=== PATIENT | female | born 1975 | race Caucasian/White ===

== ENCOUNTER → 2023-01-12 15:28 | Outpatient (CLI) | payer OTHER, SELFPAY ==
--- NOTE | ~2023-01-12 | MM_ITS ---
EXAMINATION: MM screening [facility] BI [facility] [place] HISTORY: Screening mammogram TECHNIQUE: Craniocaudal and mediolateral oblique 3-D tomosynthesis images were obtained and synthetic 2-D images were generated. CAD analysis was submitted and interpreted. COMPARISON: 10/22/2017, 10/11/2017, 09/28/2016 BREAST PARENCHYMAL COMPOSITION: There are scattered areas of fibroglandular density. FINDINGS: No suspicious mass, calcification, or architectural distortion are identified in either dalia ast to suggest malignancy. There has been no suspicious interval change. IMPRESSION: 1. No mammographic evidence of malignancy. 2. Recommend routine screening mammography in one year. BI-RADS Category 1: Negative Reviewed, dictated and finalized at location A.
== END ==
PROVIDERS: PCP Family Medicine; Visit Provider Obstetrics & Gynecology
DX: Z12.31 Encounter for screening mammogram for malignant neoplasm of breast (principal)
CPT/HCPCS: 77063; 77067

== ENCOUNTER 2023-02-16 13:59 | Outpatient (RCR) | payer OTHER, SELFPAY ==
--- NOTE | 2023-02-16 15:09 | PTOPEVAL1 ---
Assessment and note entered by Arelis Sweet, PT Evaluation Information Assessment Status Evaluation Diagnosis BPPV Subjective Information had about 3 episodes of vertigo do the self maneuver and clears, but for the past 2 years, continues to gives me troubles with moving head to the R, when lie down in bed, stand and tip head forward to dry hair HX: ear infections, sinus issues, deviated septum taking elyse for allergies, using nasal spray/ does not take anything for dizziness at rest and sitting now: head feels fine; Reported Pain Level Pain Score 0: Self Report Assessment PT Clinical Summary Carlene has the diagnosis of BPPV. Her history also includes chronic sinusitis, deviated septum, nasal congestion. With the evaluation: she reports increased s/s with lying down in bed/ getting up out of bed, standing and leaning forward to dry her hair, standing and turning her head to the R side. She has had episodes of dizziness in the past, but they did not last very long, this time has been off/on for the past 2 years. With the testing: [place] was negative to R and L; Horizontal test to L was negative/ to R was positive. Maneuver to clear her R Horizontal was performed. Provided education to pt. Plan: she will call if any questions or if more s/s she will call for an appointment in the next 5 weeks. Plan of Care Interventions Neuro Re-education,Patient/Caregiver Educati, Therapeutic Exercise PT Services Indicated Yes Treatment Frequency and 0-2x/wk for 5 weeks--she is to call for Duration appointment if vestibular symptoms increase These treatments will address the objective and functional deficits as defined above. The patient will be advanced safely and appropriately in order for the patient to progress towards his/her prior level of function. Additional exercises will be introduced and as well as a comprehensive home exercise program upon discharge, if needed, ?to ensure carryover of functional gains achieved in the clinic. This treatment plan has been reviewed and agreement upon by the patient.
== END 2023-05-17 10:25 | disposition home or self-care (01) ==
LOC: ANHPT 13:59
PROVIDERS: PCP Family Medicine; Visit Provider Otolaryngology
DX: H81.11 Benign paroxysmal vertigo, right ear (principal)
CPT/HCPCS: 95992; 97161

== ENCOUNTER 2024-02-29 09:29 | Outpatient (CLI) | payer OTHER, SELFPAY ==
--- NOTE | ~2024-02-29 | MM_ITS ---
EXAMINATION: MM screening [facility] [place] HISTORY: Screening mammogram TECHNIQUE: Craniocaudal and mediolateral oblique 3-D tomosynthesis images were obtained and synthetic 2-D images were generated. CAD analysis was submitted and interpreted. COMPARISON: 01/12/2023, 10/11/2017 BREAST PARENCHYMAL COMPOSITION:Not Dense. There are scattered areas of fibroglandular density. FINDINGS: No suspicious mass, calcification, or architectural distortion are identified in either dalia ast to suggest malignancy. There has been no suspicious interval change. IMPRESSION: No mammographic evidence of malignancy. Recommend routine screening mammography in one year. BI-RADS Category 1: Negative Reviewed, dictated and finalized at location .
== END 2024-02-29 09:30 ==
PROVIDERS: Visit Provider Obstetrics & Gynecology
DX: Z12.31 Encounter for screening mammogram for malignant neoplasm of breast (principal)
CPT/HCPCS: 77063; 77067

== ENCOUNTER 2025-06-15 05:14 | Emergency (ER) | payer OTHER, SELFPAY ==
--- NOTE | ~2025-06-15 | XR_ITS ---
Examination: XR chest 2V Clinical History: cough and fever Comparison: None Technique: PA and Lateral Findings: Cardiomediastinal silhouette normal size and configuration. Lungs clear. No acute bony abnormality. IMPRESSION: 1. No acute cardiopulmonary findings. Reviewed, dictated and finalized at location R.
--- OUTSIDE RECORDS SUMMARY | 2025-06-15 05:16 | XMS_ITS | Clinical Summary ---
Author Organization [facility] Address [facility] [place] [address] Care Team Providers Care Distribution Center Assistant Name Role Phone Danny Pradhan MD Primary Care Provider Gianni Hwang RN Unavailable Unavai Yusuf Cheek MD Unavailable Allergies Active Allergy Reactions Criticality Noted Date Comments Cephalexin Vomiting Low 04/07/2019 Medications citalopram hydrobromide (CELEXA ORAL) Celexa Active norethin-e.estrad iol triphasic 0.5/0.75/1 mg- 35 mcg per tablet Activ e methylPREDNISolon e (Medrol, Oracio,) 4 mg DosepackIndicatio ns:Acute non-recurrent pansinusitis follow package directions 1 packet 4 Active Active Problems Problem Noted Date Diagnosed Date Bacterial vaginosis 06/02/2024 Dysmenorrhea 06/02/2024 Leukorrhea 06/02/2024 Low grade squamous intraepit helial lesion (LGSIL) on cervicovaginal cytologic smear 06/02/2024 Vaginal odor 06/02/2024 Fibrocystic breast changes, bilateral 09/04/2021 Breast cancer screening 05/28/2020 Abnormal mammogram 05/16/2018 Family History Medical History Relation Name Comments Lymphoma Father Family history of lymphoma - (Added by TW Conv) Relation Name Status Comments Father Social History Tobacco Use Types Packs/Day Years Used Date Smoking Tobacco: Never Cigarettes Smokeless Tobacco: Never Tobacco Cessation:Counseling Given: Not Answered Alcohol Use Standard Drinks/Week Comments Yes 0 (1 standard drink = 0.6 oz pur e alcohol) Personal Safety Answer Date Recorded Getting School Help Needed Not on file 11/12 Comments No Sex and Gender Information Value Date Recorded Sex Assigned at Not on file Legal Sex Female 8:51 PM GRAB SETTER Gender Identity Female 06/02/2024 8:16 AM CDT Sexual Orientation Straight 06/02/2024 8: 16 AM CDT Obstetrics History Last Filed Vital Signs Vital Sign Reading Time Taken Comments Blood Pressure 112/66 06/02/2024 4:16 PM CDT Pulse 86 06/02/2024 4:16 PM CDT Temperature 37.2 C (98.9 F) 06/02/2024 4:16 PM CDT Respiratory Rate 20 06/02/2024 4:16 PM CDT Oxygen Saturation 97% 06/02/2024 4:16 PM CDT Inhaled Oxygen Concentration - - Weight 59.4 kg (131 lb) 06/02/2024 4:16 PM CDT Height 154.9 cm (5' 1) 06/02/2024 4:16 PM CDT Body Mass Index 24.75 06/02/2024 4:16 PM CDT Plan of Treatment Health Maintenance Due Date Last Done Comments Cervical Cancer Screening 1976 Colon Cancer Screening-Colonoscopy 1976 Depression Screening 1976 Hepatitis C Screening 1976 DTaP/Tdap/Td Vaccine (1 - Tdap) 1987 Hepatitis B Screening 1994 Regular Well Visit/Exam 18-64 1994 Breast Cancer Screening-Mammogram 09/04/2022 09/04/2021, 05/28/2020, 04/07/2019, Additional history exists Covid-19 Vaccine ( season) 2025 05/30/2021, 10/23/2020, 09/27/2020 Influenza Vaccine (#1) 2025 06/04/2020 Pneumococcal vaccine <65 Aged Out No longer eligible based on patient's age to complete this topic Procedures Procedure Name Priority Date/Time Associated Diagnosis Comments SCREENING MAMMOGRAM BILATERAL W JIMMY Schedule Routine, Read Routine (OP Routine) 09/04/2021 3:48 PM GRAB SETTER Abnormal mammogram from Last 3 Months or Most Recently Relevant to Health Maintenance Results * Screening Mammogram Bilateral W Jimmy (09/04/2021 3:48 PM GRAB SETTER) Anatomical Region Laterality Modality Breast Bilateral Mammography Narrative 09/05/2021 2:52 PM GRAB SETTER Mammogram Technique: Bilateral Digital Breast Tomosynthesis, Bilateral C-view 2D Screening mammogram. Views obtained: bilateral craniocaudal and bilateral mediolateral oblique. Computer Aided Detection was performed. Mammogram Findings: The present examination has been compared to prior imaging studies performed at [facility] on 08/19/2018, 04/07/2019 and 05/28/2020. The breasts are heterogeneously dense, which may obscure small masses. There is no suspicious abnormality in either breast. Impression: There is no mammographic evidence of malignancy. Annual screening mammography is recommended. OVERALL FINAL ASSESSMENT: BI-RADS CATEGORY 1: Negative. Procedure Note Nevin Lilly MD - 09/05/2021 Mammogram Technique: Bilateral Digital Breast Tomosynthesis, Bilateral C-view 2D Screening mammogram. Views obtained: bilateral craniocaudal and bilateral mediolateral oblique. Computer Aided Detection was performed. Mammogram Findings: The present examination has been compared to prior imaging studies performed at [facility] on 08/19/2018, 04/07/2019 and 05/28/2020. The breasts are heterogeneously dense, which may obscure small masses. There is no suspicious abnormality in either breast. Impression: There is no mammographic evidence of malignancy. Annual screening mammography is recommended. OVERALL FINAL ASSESSMENT: BI-RADS CATEGORY 1: Negative. us Mimi Enamorado NP IMG MAMMO PROCEDURES Fin al Result from Last 3 Months or Most Recently Relevant to Health Maintenance Insurance [facility] PLUS [facility] PLUS [facility] PLUS Care Teams Distribution Center Assistant Relationship Specialty Start Date End Date Danny Pradhan MD [address] [address] PCP - General 3/12/18 Gianni Hwang, RN Patient Shield Cleaner 04/07/19 Yusuf Rios MD [address] [address] [place] [address] Referring Physician Obstetrics and Gynecology 04/07/19
--- OUTSIDE RECORDS SUMMARY | 2025-06-15 05:16 | XMS_ITS | Clinical Summary ---
Author Organization [facility] Address [address] [place] [address] Care Team Providers Care Assistant Printer Floor Covering Name Role Phone Danny Pradhan MD Primary Care Provider [phone] Family History Medical History Relation Comments Breast Cancer Neg Hx Social History Tobacco Use Types Packs/Day Years Used Date Smoking Tobacco: Never Assessed Comments Unknown Sex and Gender Information Value Date Recorded Sex Assigned at Not on file Legal Sex Female 4:22 PM CDT Gender Identity Not on file Sexual Orientation Not on file Plan of Treatment Health Maintenance Due Date Last Done Comments Cervical Cancer Screening Pap Smear (Age 30 to 64) Every 3 Years 1976 Colorectal Cancer Screening Colonoscopy (10 Years) 1976 Annual Physical 1979 Hepatitis C 1994 DTaP, Tdap and Td Vaccines (1 - Tdap) 1995 Hepatitis B Vaccines (1 of 3 - 19+ 3-dose series) 1995 Cervical Cancer Screening Pap with HPV Testing (Age 30 to 64) Every 5 Years 2006 Cervical Cancer Screening with HPV 2006 COVID-19 Vaccine ( season) 2025 08/12/2022, 05/30/2021, 10/23/2020, Additional history exists Influenza Adult (#1) 2025 08/12/2022, 06/04/20 20 Mammogram Screening 03/06/2027 03/06/2025, 09/04/2021, 05/28/2020, Additional history exists Hepatitis A Vaccines Aged Out No long er eligible based on patient's age to complete this topic Meningococcal B Vaccine Aged Out No l onger eligible based on patient's age to complete this topic Meningococcal Vaccine Aged Out No pepe jose eligible based on patient's age to complete this topic Pneumococcal Vaccine: Pediatrics (0 to 5 Years) and At-Risk Patients (6 to 49 Years) Aged Out No longer eligible based on patient's age to complete this topic RSV Immunizations Under 20 Months Aged Out No longer eligible based on patient's age to complete this topic Procedures Procedure Name Priority Date/Time Associated Diagnosis Comments MG SCREENING W JIMMY MERCEDES DIGI Routine 03/06/2025 11:04 AM CDT Visit for screening mammogram from Last 3 Months or Most Recently Relevant to Health Maintenance Results * MG SCREENING W JIMMY MERCEDES DIGI (03/06/2025 11:04 AM CDT) Anatomical Region Laterality Modality Breast Bilateral Mammography 03/07/2025 11:3 1 AM CDT Impressions 03/07/2025 11:56 AM CDT ===== IMPRESSION: ===== 1. Stable mammographic appearance with no new findings to suggest malignancy in either breast. Assessment: ACR BI-RADS 2 - BENIGN FINDING(S) Recommendation: 1:Routine Screening Bilateral Comments: Ordered By: YUSUF RIOS Interpreted By: Christy Michel, 03/07/2025 11:31 AM Narrative 03/07/2025 11:56 AM CDT [facility] [address] [place] [address] EXAMINATION: Digital bilateral screening mammogram with 3-D tomosynthesis EXAM DATE/TIME: 03/06/2025 10:27 AM REASON FOR EXAM: screening COMPARISON: 01/12/2023. 02/29/2024. 10/11/2017 Technique: Digital screening mammography of both breasts was performed in addition to 3-D Tomosynthesis technique. This study was read with the assistance of a computer-aided detection system. Tissue density: There are scattered areas of fibroglandular density. Findings: There is no new focal asymmetry, dominant mass lesion, area of skin thickening, or cluster of suspicious appearing calcifications in either breast to suggest malignancy. Stable benign well-defined nodule within the upper outer quadrant of the right breast. Mid to anterior depth. Stable since more remote 2017 exam. Considered benign. us Yusuf Rios MD MAMMO Final Result from Last 3 Months or Most Recently Relevant to Health Maintenance Insurance [facility] Care Teams Assistant Printer Floor Covering Relationship Specialty Start Date End Date Danny Pradhan MD [address] [place] [address] PCP - General FAMILY PRACTICE 11/21/24
[2025-06-15 06:14] VITALS: BP 133/74; PULSE 85; RESP 17; TEMP 36.9; O2SAT 99
[2025-06-15 06:27] VITALS: RESP 14; O2SAT 100
--- NOTE | 2025-06-15 07:26 | ED.GENADULT ---
HPI - General Adult General Chief complaint: Fever Stated complaint: Fever and congestion Time Seen by Provider: 06/15/25 06:54 History of Present Illness HPI narrative: 50-year-old female presents to the emergency department for evaluation for 7 days of cough congestion nausea vomiting fever and fatigue. 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 Patient states her symptoms initially started with ear pressure and she was started on ear drops please do not improve. Patient states her fever has been less than 100. Related Data Home Medications ?Medication ?Instructions ?Recorded ?Confirmed ?Last Taken ?Type fexofenadine 180 mg tablet 180 mg PO DAILY 07/21/22 12/11/24 Unknown History (Ana Maria Allergy) Allergies Allergy/AdvReac Type Severity Reaction Status Date / Time cephalexin Allergy Unknown unk Verified 06/15/25 07:42 Cephalosporins Allergy Unknown unk Verified 06/15/25 07:42 CEFALEXIN Allergy Intermediate Diarrhea Uncoded 12/11/24 10:37 Review of Systems Review of Systems: All systems reviewed & are unremarkable except as noted in HPI and below PMFSH Past Medical History Medical History Screening mammogram, encounter for Hernia (~1979) hernia repair 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22, half removed Anxiety and depression Surgical History Surgical History History of endometrial ablation (02/01/14) H/O LEEP (02/01/14) HGSIL LATASHA II H/O tubal ligation (02/01/14) History of hysteroscopy (05/17/12) Diagnostic Hysteroscopy/D&C - menorrhagia, dysmenorrhea, cervical stenosis History of colposcopy (09/14/13) chronic cxitis H/O LEEP (08/30/98) H/O LEEP (10/29/17) Family History Family History Mother Asthma Patient's mother is in good health Father Family history of lymphoma, Onset Age: 68 Patient's father is , Onset Age: 68 Alcoholism Depression Sibling Depression Grandparent Depression Heart disease Grandparent Alcoholism Social History Social History (Updated 12/11/24 @ 10:39 by Louann Chand, [facility]) Smoking status: Never smoker Second hand tobacco smoke exposure: No Alcohol intake: current Drinks per week: 3 Substance use: never Substance use type: does not use Do You Feel Safe in your Home?: Yes Lack of Transportation: No Lack of Food: Never True Current Housing: I Have Housing Concerned About Future Housing: No Difficulty Paying Gas/Electric Bills: No Difficulty Paying for Meds: No Currently Unemployed: No Education: Master's Degree or Higher Difficulty w/ Childcare or Family Care: No Living arrangements: with family Additional living arrangements comments: / Engaged Occupation/Education: occupation Additional occupation/education comments: teacher Gender identity (if verbalized by the patient): Female Sexual Orientation (if Verbalized by the Patient): Straight or Heterosexual Exam Narrative: APPEARANCE: Ill-appearing, no distress HEAD: normocephalic, atraumatic. EYES: PERRLA/EOMI, conjunctivae clear. NOSE: Normal no drainage EARS:TMS clear with good light reflex. THROAT: Pharynx clear, no exudate. NECK: Supple. No adenopathy, no masses. RESPIRATORY: Airway patent, respirations nonlabored. Clear to auscultation bilaterally, no rales, rhonchi, wheezing. CARDIOVASCULAR: Regular rate and rhythm without murmurs rubs or gallops. ABDOMINAL: Soft, nontender, nondistended, normal bowel sounds MUSCULOSKELETAL: Moves all extremities. Strength/ROM intact, No edema, No calf tenderness. NEURO: Alert. Cranial nerves II through XII intact. Good gait. Good coordination SKIN: Warm, dry. Normal Color Course Vital Signs Vital signs: Vital Signs Temperature 98.4 F 06/15/25 06:14 Pulse Rate 85 06/15/25 06:14 Respiratory Rate 17 06/15/25 06:14 Blood Pressure 133/74 06/15/25 06:14 Pulse Oximetry 99 06/15/25 06:14 Oxygen Delivery Room Air 06/15/25 06:14 Temperature 98.4 F 06/15/25 06:14 Pulse Rate 76 06/15/25 07:47 Respiratory Rate 17 06/15/25 07:47 Blood Pressure 134/59 L 06/15/25 07:47 Pulse Oximetry 100 06/15/25 07:47 Oxygen Delivery Room Air 06/15/25 06:14 Medical Decision Making MDM Narrative Medical decision making narrative: 50-year-old female presents emergency department for evaluation for viral symptoms. Patient was negative for influenza RSV and for COVID. Chest x-ray shows no acute cardiopulmonary abnormality. Patient will be provided epidural inhaler and Tessalon Perles for symptom control. Patient was advised to take Tylenol and ibuprofen for fever for body aches. All questions concerns were addressed. Differential Diagnosis Differential Diagnosis: COVID, RSV, influenza, pneumonia, viral syndrome Vital Signs Vital Signs: Vital Signs Temperature 98.4 F 06/15/25 06:14 Pulse Rate 85 06/15/25 06:14 Respiratory Rate 17 06/15/25 06:14 Blood Pressure 133/74 06/15/25 06:14 Pulse Oximetry 99 06/15/25 06:14 Oxygen Delivery Room Air 06/15/25 06:14 Temperature 98.4 F 06/15/25 06:14 Pulse Rate 76 06/15/25 07:47 Respiratory Rate 17 06/15/25 07:47 Blood Pressure 134/59 L 06/15/25 07:47 Pulse Oximetry 100 06/15/25 07:47 Oxygen Delivery Room Air 06/15/25 06:14 Lab Data Lab results reviewed: Yes I reviewed the patient's lab results. Labs: Lab Results 06/15/25 Range/Units 07:04 Influenza A (RT-PCR) Negative (Negative) Influenza B (RT-PCR) Negative (Negative) RSV (RT-PCR) Negative (Negative) SARS-CoV-2 RNA (RT-PCR) Negative (Negative) Imaging Data Radiologist's impression: Impressions Chest X-Ray 06/15/25 08:10 IMPRESSION: 1. No acute cardiopulmonary findings. Discharge Plan Discharge Clinical Impression: Acute viral syndrome Patient Disposition: Home Condition: Stable Instructions: Antibiotic Form, Viral Syndrome (ED) Additional Instructions: Your chest x-ray showed no evidence of pneumonia. Tylenol and ibuprofen for fever and body aches. Albuterol inhaler for shortness of breath. Tessalon Perles for cough. Have close follow-up with your primary care physician. If you have any worsening symptoms then please call or return to the emergency department. Patient Language: Colombian Prescriptions: New benzonatate 100 mg capsule 100 mg PO TID PRN (Reason: cough) Qty: 14 0RF albuterol sulfate 90 mcg/actuation HFA aerosol inhaler 1 puff inhalation QID Qty: 6.7 0RF No Action fexofenadine [Ana Maria Allergy] 180 mg tablet 180 mg PO DAILY norethindrone ac-eth estradiol [Loestrin 09/18 ()] 1-20 mg-mcg tablet 1 tablet PO DAILY Qty: 112 3RF Rx Instructions: patient is taking in a continuous manner skipping the placebo pills Follow-up/Referrals: Danny Pradhan MD [Primary Care Provider, Family Practice]
[2025-06-15 07:47] VITALS: BP 134/59; PULSE 76; RESP 17; O2SAT 100
[2025-06-15] MEDS: LACTATED RINGERS 1,000 ML 999 ML IV CONT (07:48)
[2025-06-15] MEDS: ONDANSETRON INJ 4 MG/2 ML VIAL IV PUSH (07:49)
--- OUTSIDE RECORDS SUMMARY | 2025-06-15 07:59 | XMS_ITS | Clinical Summary ---
Author Organization [facility] Care Team Providers Care Community Music Therapist Name Role Phone Unavailable Primary Care Provider Unavailabl e Social History Tobacco Use Types Packs/Day Years Used Date Smoking Tobacco: Never Assessed Comments Unknown Sex and Gender Information Value Date Recorded Sex Assigned at Not on file Legal Sex Female 1:37 PM NOTCHER Gender Identity Not on file Sexual Orientation Not on file Plan of Treatment Health Maintenance Due Date Last Done Comments Hepatitis C Virus (HCV) Screening 1976 TdaP Immunization 1976 Hepatitis B Immunization (1 of 3 - 19+ 3-dose series) 1995 Pap Smear 1997 Cervical Cancer Screening (CCS) 2006 HPV/Cotest 2006 Cologuard 2021 Colonoscopy 2021 Colorectal Cancer Screening 2021 Immunochemical Fecal Occult Blood 2021 Influenza Immunization (#1) 2025 06/04/2020 SARS-COV-2 Immunization ( season) 2025 Respiratory Syncytial Virus (RSV) Immunization (Adult) (1 - 1-dose 75+ series) 2051 Human Papillomavirus (HPV) Immunization Aged Out No longer eligible b ased on patient's age to complete this topic Meningococcal Immunization (ACWY) Aged Out No longer eligible based on patient's age to complete this topic Pneumococcal Immunization Combined Aged Out No longer eligible based on patient's age to complete this topic Rotavirus Immunization Aged Out No lo nger eligible based on patient's age to complete this topic
--- OUTSIDE RECORDS SUMMARY | 2025-06-15 08:00 | XMS_ITS | Clinical Summary ---
Author Organization [facility] Address [address] [place] [address] Care Team Providers Care Sales Ledger Administrator Name Role Phone Danny Pradhan MD Primary Care Provider [phone] Family History Medical History Relation Comments Breast [...] 11:31 AM Narrative 03/07/2025 11:56 AM CDT [facility] [address] [place] [address] EXAMINATION: Digital bilateral screening mammogram with 3-D [...] Most Recently Relevant to Health Maintenance Insurance [facility] Care Teams Sales Ledger Administrator Relationship Specialty Start Date End Date Danny Pradhan MD [address] [place] [address] PCP - General FAMILY PRACTICE 11/21/24
--- OUTSIDE RECORDS SUMMARY | 2025-06-15 08:00 | XMS_ITS | Clinical Summary ---
Author Organization [facility] Address [facility] [place] [address] Care Team Providers Care Eeler Name Role Phone Danny Pradhan MD Primary Care Provider Gianni Hwang RN Unavailable Unavai Yusuf Cheek MD Unavailable [phone] Allergies Active Allergy Reactions Criticality Noted Date [...] on file Legal Sex Female 8:51 PM ONSITE CASE MANAGER Gender Identity Female 06/02/2024 8:16 AM CDT [...] Read Routine (OP Routine) 09/04/2021 3:48 PM ONSITE CASE MANAGER Abnormal mammogram from Last 3 Months or Most Recently Relevant to Health Maintenance Results * Screening Mammogram Bilateral W Jimmy (09/04/2021 3:48 PM ONSITE CASE MANAGER) Anatomical Region Laterality Modality Breast Bilateral Mammography Narrative 09/05/2021 2:52 PM ONSITE CASE MANAGER Mammogram Technique: Bilateral Digital Breast Tomosynthesis, Bilateral C-view 2D Screening mammogram. Views obtained: bilateral craniocaudal and bilateral mediolateral oblique. Computer Aided Detection was performed. Mammogram Findings: The present examination has been compared to prior imaging studies performed at [facility] on 08/19/2018, 04/07/2019 and 05/28/2020. The breasts [...] compared to prior imaging studies performed at [facility] on 08/19/2018, 04/07/2019 and 05/28/2020. The breasts [...] Most Recently Relevant to Health Maintenance Insurance [facility] CHOICE PLUS [facility] CHOICE PLUS [facility] CHOICE PLUS Care Teams Eeler Relationship Specialty Start Date End Date Danny Pradhan MD [address] [address] PCP - General 3/12/18 Gianni Hwang, RN Patient Fryer Operator 04/07/19 Yusuf Rios MD [address] [address] [place] [address] Referring Physician Obstetrics and Gynecology 04/07/19
[2025-06-15 08:17] LABS: Influenza A QL RT-PCR Negative (Negative); Influenza B QL RT-PCR Negative (Negative); RSV RNA, RT-PCR Negative (Negative); SARS-CoV-2 RNA PCR Negative (Negative)
== END 2025-06-15 09:21 | disposition home or self-care (01) ==
PROVIDERS: Emergency Provider Emergency Medicine; PCP Family Medicine
DX: B34.9 Viral infection, unspecified (principal); Z20.822 Contact with and (suspected) exposure to COVID-19; Z79.3 Long term (current) use of hormonal contraceptives
CPT/HCPCS: 71046; 87637; 96361; 96374; 99284; J2405; J7120